=== PATIENT | male | born 1940 | race Caucasian/White ===

== ENCOUNTER → 2018-02-13 09:12 | Outpatient (CLI) | payer MEDICARE, BC, SELFPAY ==
[2018-02-13 09:57] LABS: Alanine Aminotransferase 29 IU/L (21-72); Aspartate Aminotransferase 25 IU/L (17-59); BUN Creatinine Ratio 19.3 (6-22); Blood Urea Nitrogen 29 mg/dL (9-20); Calcium 9.3 mg/dL (8.4-10.2); Carbon Dioxide 29 mmol/L (22-32); Chloride 98 mmol/L (98-107); Cholesterol 148 mg/dL (140-199); Estimated Glomerular Filt Rate 45.5 mL/min (>60); Glucose 139 mg/dL (80-110); HDL Cholesterol 67 mg/dL (40-60); HEMOLYSIS < 15 (0-50); LDL Cholesterol Calculated 69 mg/dL (<100); Potassium 4.7 mmol/L (3.4-5.1); Sodium 140 mmol/L (137-145); Triglycerides 62 mg/dL (35-150)
[2018-02-13 09:59] LABS: Hemoglobin A1C% w Est Avg Glu 6.6 % (4.0-6.0)
[2018-02-13 10:29] LABS: Prostate Specific Antigen Scrn 0.525 ng/mL (0.1-4.0)
[2018-02-13 11:14] LABS: TSH w/ Reflex to FT4 1.28 uIU/mL (0.47-4.68)
== END ==
PROVIDERS: Family Provider Internal Medicine; PCP Internal Medicine; Visit Provider Internal Medicine
DX: I10 Essential (primary) hypertension (principal); Z00.00 Encounter for general adult medical examination without abnormal findings; E11.9 Type 2 diabetes mellitus without complications; E78.00 Pure hypercholesterolemia, unspecified
CPT/HCPCS: 36415; 80048; 80061; 83036; 84443; 84450; 84460; G0103

== ENCOUNTER → 2019-04-30 18:11 | Outpatient (ROUT) | payer MEDICARE, BC, SELFPAY ==
[2019-04-30 18:52] LABS: Alanine Aminotransferase 26 IU/L (<50); Albumin 4.6 g/dL (3.5-5.0); Albumin Globulin Ratio 1.5 (1.0-2.8); Alkaline Phosphatase 91 U/L (38-126); Aspartate Aminotransferase 27 IU/L (17-59); BUN Creatinine Ratio 26.1 (6-22); Bilirubin Total 0.8 mg/dL (0.2-1.3); Blood Urea Nitrogen 47 mg/dL (9-20); Calcium 10.1 mg/dL (8.4-10.2); Carbon Dioxide 26 mmol/L (22-32); Chloride 102 mmol/L (98-107); Cholesterol 165 mg/dL (140-199); Estimated Glomerular Filt Rate 36.7 mL/min (>60); Globulin 3.1 g/dL (1.7-4.1); Glucose 147 mg/dL (80-110); HDL Cholesterol 63 mg/dL (40-60); HEMOLYSIS < 15 (0-50); LDL Cholesterol Calculated 88 mg/dL (<100); Potassium 5.5 mmol/L (3.4-5.1); Sodium 139 mmol/L (137-145); Total Protein 7.7 g/dL (6.3-8.2); Triglycerides 72 mg/dL (35-150)
[2019-04-30 18:53] LABS: Hemoglobin A1C% w Est Avg Glu 7.1 % (4.0-6.0)
[2019-04-30 19:22] LABS: TSH w/ Reflex to FT4 3.06 uIU/mL (0.47-4.68)
[2019-05-03 15:13] LABS: PSA Total 3.04 ng/mL (< 4.01)
== END ==
PROVIDERS: Family Provider Internal Medicine; PCP Internal Medicine; Visit Provider Internal Medicine
DX: Z12.5 Encounter for screening for malignant neoplasm of prostate (principal); N18.3 Chronic kidney disease, stage 3 (moderate); E78.00 Pure hypercholesterolemia, unspecified; E11.9 Type 2 diabetes mellitus without complications; E03.9 Hypothyroidism, unspecified
CPT/HCPCS: 80053; 80061; 83036; 84153; 84154; 84443

== ENCOUNTER → 2019-10-31 09:26 | Outpatient (CLI) | payer MEDICARE, BC, SELFPAY ==
[2019-10-31 10:55] LABS: Hemoglobin A1C% w Est Avg Glu 7.4 % (4.0-6.0)
[2019-10-31 11:07] LABS: Alanine Aminotransferase 21 IU/L (<50); Albumin 4.2 g/dL (3.5-5.0); Albumin Globulin Ratio 1.6 (1.0-2.8); Alkaline Phosphatase 84 U/L (38-126); Aspartate Aminotransferase 22 IU/L (17-59); BUN Creatinine Ratio 19.4 (6-22); Bilirubin Total 0.9 mg/dL (0.2-1.3); Blood Urea Nitrogen 35 mg/dL (9-20); Calcium 9.7 mg/dL (8.4-10.2); Carbon Dioxide 27 mmol/L (22-32); Chloride 103 mmol/L (98-107); Cholesterol 143 mg/dL (140-199); Estimated Glomerular Filt Rate 36.7 mL/min (>60); Globulin 2.7 g/dL (1.7-4.1); Glucose 143 mg/dL (80-110); HDL Cholesterol 52 mg/dL (40-60); HEMOLYSIS < 15 (0-50); LDL Cholesterol Calculated 72 mg/dL (<100); Sodium 137 mmol/L (137-145); Total Protein 6.9 g/dL (6.3-8.2); Triglycerides 96 mg/dL (35-150)
[2019-10-31 11:09] LABS: Creatinine Urine Random 92.7 mg/dL
[2019-10-31 11:10] LABS: Potassium 5.6 mmol/L (3.4-5.1)
[2019-10-31 11:13] LABS: Microalbumi Creatinin Ratio Ur 21.5 ug/mg CR (<30)
== END ==
PROVIDERS: Family Provider Internal Medicine; PCP Internal Medicine; Referring Provider Internal Medicine; Visit Provider Internal Medicine
DX: I10 Essential (primary) hypertension (principal); E78.00 Pure hypercholesterolemia, unspecified; E11.9 Type 2 diabetes mellitus without complications
CPT/HCPCS: 36415; 80053; 80061; 82043; 82570; 83036

== ENCOUNTER → 2020-02-24 19:17 | Outpatient (ROUT) | payer MEDICARE, BC, SELFPAY ==
[2020-02-24 20:15] LABS: Alanine Aminotransferase 17 IU/L (<50); Albumin 4.5 g/dL (3.5-5.0); Albumin Globulin Ratio 1.6 (1.0-2.8); Alkaline Phosphatase 85 U/L (38-126); Aspartate Aminotransferase 24 IU/L (17-59); BUN Creatinine Ratio 27.4 (6-22); Bilirubin Total 0.6 mg/dL (0.2-1.3); Blood Urea Nitrogen 51 mg/dL (9-20); Calcium 9.8 mg/dL (8.4-10.2); Carbon Dioxide 25 mmol/L (22-32); Chloride 105 mmol/L (98-107); Estimated Glomerular Filt Rate 35.3 mL/min (>60); Globulin 2.9 g/dL (1.7-4.1); Glucose 134 mg/dL (80-110); HEMOLYSIS < 15 (0-50); Sodium 136 mmol/L (137-145); Total Protein 7.4 g/dL (6.3-8.2)
[2020-02-24 20:16] LABS: Potassium 5.4 mmol/L (3.4-5.1)
[2020-02-24 20:52] LABS: TSH w/ Reflex to FT4 1.76 uIU/mL (0.47-4.68)
== END ==
PROVIDERS: Family Provider Internal Medicine; PCP Internal Medicine; Visit Provider Internal Medicine
DX: E03.9 Hypothyroidism, unspecified (principal); N18.30 Chronic kidney disease, stage 3 unspecified
CPT/HCPCS: 80053; 84443

== ENCOUNTER → 2020-04-12 12:31 | Outpatient (CLI) | payer MEDICARE, BC, SELFPAY ==
--- NOTE | 2020-04-12 | DI.US.S_ITS ---
PROCEDURE: US RENAL COMPLETE INDICATIONS: CHRONIC KIDNEY DISEASE STAGE 3B TECHNIQUE: Real-time scanning was performed of the kidneys and bladder, with image documentation. COMPARISON: None. FINDINGS: Kidneys: Kidneys are normal in size. Right kidney measures 9.6 cm long; left kidney measures 11.5 cm long. Right renal cortical thickness is 1.5 cm; left renal cortical thickness is 1.1 cm. Mildly increased renal echogenicity is seen.. No hydronephrosis or nephrolithiasis. No suspicious solid mass lesions. Bladder: Pre-void bladder volume is 207 mL. Post-void residual is 34 mL. Pre-void images demonstrate no intraluminal masses or stones. There is bladder wall thickening seen, measuring 6.5 mm on the prevoid images and 7.3 cm on the postvoid images. On pre-void images, neither of the ureteral jets are noted with color Doppler interrogation. (Of note, ureteral jets may not be detectable in up to 25% of cases due to insufficient differences in specific gravity between ureteral and bladder urine). Miscellaneous: No free pelvic fluid. The prostate measures 5.2 x 4.9 x 4.3 cm. IMPRESSION: No hydronephrosis is seen. No focal kidney abnormality is seen. The kidneys demonstrate increased echogenicity, which is consistent with the given clinical history of chronic kidney disease. Bladder wall thickening is seen. Please consider bladder outlet obstruction in this patient with a prominent prostate. Mild postvoid residual, 34 cc. Dictated by: Mckay Holden M.D. on 04/12/2020 at 14:25 Approved by: Mckay Holden M.D. on 04/12/2020 at 14:27
== END ==
PROVIDERS: Family Provider Internal Medicine; PCP Internal Medicine; Referring Provider Internal Medicine; Visit Provider Internal Medicine Nephrology
DX: N18.32 Chronic kidney disease, stage 3b (principal)
CPT/HCPCS: 76770

== ENCOUNTER → 2020-04-13 11:02 | Outpatient (CLI) | payer MEDICARE, BC, SELFPAY ==
[2020-04-13 12:16] LABS: BUN Creatinine Ratio 27.6 (6-22); Blood Urea Nitrogen 48 mg/dL (9-20); Calcium 9.3 mg/dL (8.4-10.2); Carbon Dioxide 29 mmol/L (22-32); Chloride 103 mmol/L (98-107); Glucose 202 mg/dL (80-110); HEMOLYSIS < 15 (0-50); Potassium 4.8 mmol/L (3.4-5.1); Sodium 135 mmol/L (137-145)
== END ==
PROVIDERS: Family Provider Internal Medicine; PCP Internal Medicine; Referring Provider Internal Medicine Nephrology; Visit Provider Internal Medicine Nephrology
DX: N17.9 Acute kidney failure, unspecified (principal)
CPT/HCPCS: 36415; 80048

== ENCOUNTER → 2020-12-30 08:50 | Outpatient (CLI) | payer MEDICARE, BC, SELFPAY ==
[2020-12-30 09:19] LABS: Add Manual Diff / Slide Review NO; Basophils Absolute Auto 100 /uL (0-100); Basophils Percent Auto 1.1 % (0-2); Eosinophils Absolute Auto 400 /uL (0-450); Eosinophils Percent Auto 5.6 % (2-4); Hemoglobin 12.1 g/dL (13.5-17.5); Lymphocytes Absolute Auto 1900 /uL (1100-4500); Lymphocytes Percent Auto 25.8 % (25-40); Mean Corpuscular HGB Conc 33.7 % (30-36); Mean Corpuscular Hemoglobin 31.6 PG (26-34); Mean Corpuscular Volume 93.6 fL (80-100); Monocytes Absolute Auto 700 /uL (0-900); Monocytes Percent Auto 9.4 % (3-14); Neutrophils Absolute Auto 4300 /uL (1500-7000); Neutrophils Percent Auto 58.1 % (50-75); Platelet Count 224 X10^3/uL (150-400); Red Blood Cell Count 3.84 X10^6/uL (4.5-5.9); Red Cell Distribution Width 13.2 % (11.6-14.8); White Blood Cell Count 7.4 X10^3/uL (4.5-11.0)
[2020-12-30 09:35] LABS: Albumin 4.2 g/dL (3.5-5.0); BUN Creatinine Ratio 22.5 (6-22); Blood Urea Nitrogen 41 mg/dL (9-20); Calcium 9.4 mg/dL (8.4-10.2); Carbon Dioxide 28 mmol/L (22-32); Chloride 103 mmol/L (98-107); Estimated Glomerular Filt Rate 36.1 mL/min (>60); Glucose 132 mg/dL (80-110); HEMOLYSIS < 15 (0-50); Phosphorous 3.5 mg/dL (2.3-3.7); Potassium 4.6 mmol/L (3.4-5.1); Sodium 140 mmol/L (137-145)
== END ==
PROVIDERS: Family Provider Internal Medicine; PCP Internal Medicine; Referring Provider Internal Medicine Nephrology; Visit Provider Internal Medicine Nephrology
DX: N18.32 Chronic kidney disease, stage 3b (principal)
CPT/HCPCS: 36415; 80069; 85025

== ENCOUNTER → 2021-06-24 09:56 | Outpatient (CLI) | payer MEDICARE, BC, SELFPAY ==
[2021-06-24 10:50] LABS: Add Manual Diff / Slide Review NO; Basophils Absolute Auto 100 /uL (0-100); Eosinophils Absolute Auto 500 /uL (0-450); Eosinophils Percent Auto 6.1 % (2-4); Hemoglobin 11.8 g/dL (13.5-17.5); Lymphocytes Absolute Auto 1600 /uL (1100-4500); Lymphocytes Percent Auto 21.2 % (25-40); Mean Corpuscular HGB Conc 33.7 % (30-36); Mean Corpuscular Hemoglobin 31.4 PG (26-34); Mean Corpuscular Volume 93.2 fL (80-100); Monocytes Absolute Auto 700 /uL (0-900); Monocytes Percent Auto 9.1 % (3-14); Neutrophils Absolute Auto 4800 /uL (1500-7000); Neutrophils Percent Auto 62.6 % (50-75); Platelet Count 208 X10^3/uL (150-400); Red Blood Cell Count 3.76 X10^6/uL (4.5-5.9); Red Cell Distribution Width 13.1 % (11.6-14.8); White Blood Cell Count 7.7 X10^3/uL (4.5-11.0)
[2021-06-24 11:20] LABS: BUN Creatinine Ratio 22.3 (6-22); Blood Urea Nitrogen 43 mg/dL (9-20); Calcium 8.9 mg/dL (8.4-10.2); Carbon Dioxide 26 mmol/L (22-32); Chloride 101 mmol/L (98-107); Estimated Glomerular Filt Rate 35 mL/min (>60); Glucose 160 mg/dL (80-110); HEMOLYSIS < 15 (0-50); Phosphorous 3.6 mg/dL (2.3-3.7); Sodium 138 mmol/L (137-145)
[2021-06-24 11:21] LABS: Creatinine Urine Random 176.4 mg/dL; Potassium 5.4 mmol/L (3.4-5.1); Protein (Total) Urine Random 15 mg/dL (0-12); Protein Creatinine Ratio Urine 0.08 GRAM/24H
[2021-06-24 11:37] LABS: Vitamin D 25 Hydroxy (D3) 24.4 ng/mL (30.0-100.0)
[2021-06-25 08:35] LABS: Parathyroid Hormone Int 67 pg/mL (15-65)
== END ==
PROVIDERS: Family Provider Internal Medicine; PCP Internal Medicine; Referring Provider Internal Medicine Nephrology; Visit Provider Internal Medicine Nephrology
DX: N18.32 Chronic kidney disease, stage 3b (principal)
CPT/HCPCS: 36415; 80069; 82306; 82570; 83970; 84156; 85025

== ENCOUNTER → 2021-12-28 08:47 | Outpatient (CLI) | payer MEDICARE, BC, SELFPAY ==
[2021-12-28 09:41] LABS: Add Manual Diff / Slide Review NO; Basophils Absolute Auto 100 /uL (0-100); Basophils Percent Auto 1.1 % (0-2); Eosinophils Absolute Auto 400 /uL (0-450); Eosinophils Percent Auto 5.8 % (2-4); Hematocrit 33.8 % (41-53); Hemoglobin 11.8 g/dL (13.5-17.5); Lymphocytes Absolute Auto 1600 /uL (1100-4500); Lymphocytes Percent Auto 21.9 % (25-40); Mean Corpuscular HGB Conc 34.9 % (30-36); Mean Corpuscular Volume 91.6 fL (80-100); Monocytes Absolute Auto 700 /uL (0-900); Monocytes Percent Auto 9.4 % (3-14); Neutrophils Absolute Auto 4500 /uL (1500-7000); Neutrophils Percent Auto 61.8 % (50-75); Platelet Count 208 X10^3/uL (150-400); Red Blood Cell Count 3.69 X10^6/uL (4.5-5.9); Red Cell Distribution Width 13.2 % (11.6-14.8); White Blood Cell Count 7.2 X10^3/uL (4.5-11.0)
[2021-12-28 09:54] LABS: Albumin 4.2 g/dL (3.5-5.0); Blood Urea Nitrogen 44 mg/dL (9-20); Calcium 9.4 mg/dL (8.4-10.2); Carbon Dioxide 29 mmol/L (22-32); Chloride 103 mmol/L (98-107); Estimated Glomerular Filt Rate 37 mL/min (>60); Glucose 138 mg/dL (80-110); HEMOLYSIS < 15 (0-50); Phosphorous 3.9 mg/dL (2.3-3.7); Potassium 4.8 mmol/L (3.4-5.1); Sodium 143 mmol/L (137-145)
[2021-12-28 10:24] LABS: Vitamin D 25 Hydroxy (D3) 55.4 ng/mL (30.0-100.0)
[2021-12-29 06:36] LABS: Parathyroid Hormone Int 28 pg/mL (15-65)
== END ==
PROVIDERS: Referring Provider Internal Medicine Nephrology; Visit Provider Internal Medicine Nephrology
DX: N18.32 Chronic kidney disease, stage 3b (principal); E55.9 Vitamin D deficiency, unspecified
CPT/HCPCS: 36415; 80069; 82306; 83970; 85025

== ENCOUNTER → 2022-06-29 09:10 | Outpatient (CLI) | payer MEDICARE, BC, SELFPAY ==
[2022-06-29 10:08] LABS: Add Manual Diff / Slide Review NO; Basophils Absolute Auto 100 /uL (0-100); Eosinophils Absolute Auto 300 /uL (0-450); Hematocrit 36.4 % (41-53); Hemoglobin 12.4 g/dL (13.5-17.5); Lymphocytes Absolute Auto 1200 /uL (1100-4500); Lymphocytes Percent Auto 21.5 % (25-40); Mean Corpuscular HGB Conc 33.9 % (30-36); Mean Corpuscular Hemoglobin 31.3 PG (26-34); Mean Corpuscular Volume 92.2 fL (80-100); Monocytes Absolute Auto 600 /uL (0-900); Monocytes Percent Auto 9.9 % (3-14); Neutrophils Absolute Auto 3600 /uL (1500-7000); Neutrophils Percent Auto 62.6 % (50-75); Platelet Count 169 X10^3/uL (150-400); Red Blood Cell Count 3.95 X10^6/uL (4.5-5.9); Red Cell Distribution Width 12.7 % (11.6-14.8); White Blood Cell Count 5.7 X10^3/uL (4.5-11.0)
[2022-06-29 10:40] LABS: Appearance Urine UA CLEAR; Bilirubin Urine UA NEGATIVE (NEGATIVE); Color Urine UA YELLOW; Glucose Urine UA TRACE g/dL (Negative); Ketones Urine UA NEGATIVE (NEGATIVE); Leukocyte Esterase Urine UA NEGATIVE (NEGATIVE); Nitrite Urine UA NEGATIVE (Negative); Occult Blood Urine UA TRACE-INTACT (Negative); Protein Urine UA 2+ (Negative); Specific Gravity Urine UA >=1.030 (1.000-1.035); Urobilinogen Urine UA 0.2 E.U./dL (0.2); pH Urine UA 5.5 (4.5-8.0)
[2022-06-29 10:47] LABS: Creatinine Urine Random 154.8 mg/dL
[2022-06-29 11:03] LABS: Bacteria Urine Moderate (10-30); RBC Urine 1-5/HPF (0-5/HPF); Squamous Epithelial Cell Urine 1-5 /HPF (0-5/HPF); WBC Urine 1-5/HPF (0-5/HPF)
[2022-06-29 11:04] LABS: Culture Indicated Urine Cult Not Indicated
[2022-06-29 11:16] LABS: Albumin 3.8 g/dL (3.5-5.0); BUN Creatinine Ratio 19.4 (6-22); Blood Urea Nitrogen 28 mg/dL (9-20); Calcium 8.8 mg/dL (8.4-10.2); Carbon Dioxide 32 mmol/L (22-32); Chloride 100 mmol/L (98-107); Estimated Glomerular Filt Rate 49 mL/min (>60); Glucose 191 mg/dL (80-110); HEMOLYSIS < 15 (0-50); Phosphorous 3.5 mg/dL (2.3-3.7); Potassium 4.6 mmol/L (3.4-5.1); Sodium 137 mmol/L (137-145)
[2022-06-29 11:26] LABS: Microalbumi Creatinin Ratio Ur 397.9 ug/mg CR (<30); Microalbumin Urine Random 61.6 mg/dL (0-1.6)
== END ==
PROVIDERS: Referring Provider Internal Medicine Nephrology; Visit Provider Internal Medicine Nephrology
DX: N18.32 Chronic kidney disease, stage 3b (principal)
CPT/HCPCS: 36415; 80069; 81001; 82043; 82570; 85025

== ENCOUNTER 2022-07-17 13:53 | Emergency (ER) | payer MEDICARE, BC, SELFPAY ==
[2022-07-17 14:05] VITALS: BP 207/84; PULSE 55; RESP 18; TEMP 36.6; O2SAT 98; BMI 27.1
--- NOTE | 2022-07-17 14:22 | ED_ITS ---
HPI - General Adult <Radha Mark PA-C - Last Filed: 07/17/22 16:47> General Chief complaint: Wound/Laceration Stated complaint: fall, hit head/ right hand Laceration Time Seen by Provider: 07/17/22 14:08 Source: patient Mode of arrival: Ambulatory History of Present Illness HPI narrative: 82-year-old male with past medical history hypothyroidism, BPH, hypercholesterolemia presents to the ED status post a mechanical fall sustained just prior to arrival. Patient states that he tripped in the parking lot, did not see a step. Patient denies feeling lightheaded or dizzy, did not have chest pain or shortness of breath leading to the fall. Last tetanus is unknown. Patient complains of 2 lacerations to his right palm which he sustained when bracing himself from the fall. Related Data Home Medications Medication Instructions Recorded Confirmed ATENOLOL (Tenormin) mg PO Q DAY ##0 06/17/06 Atorvastatin Calcium (Lipitor) 0 PO Q DAY ##0 06/17/06 [THYROID Medication] 0 mg PO Q DAY ##0 06/17/06 finasteride 5 mg tablet 5 mg PO QDAY ##0 11/22/16 tamsulosin 0.4 mg capsule (Flomax) 0.4 mg PO QDAY ##0 11/22/16 Previous Rx's Medication Instructions Recorded valacyclovir 1 gram tablet 1,000 mg PO TID #21 tabs 11/22/16 (Valtrex) Allergies Allergy/AdvReac Type Severity Reaction Status Date / Time No Known Drug Allergies Allergy Verified 07/17/22 14:24 Review of Systems <Radha Mark PA-C - Last Filed: 07/17/22 16:47> Review of Systems ROS Unobtainable: All systems reviewed & are unremarkable except as noted in HPI and below Constitutional Constitutional: Denies chills, Denies fatigue, Denies fever(s), Denies frequent falls, Denies lethargy and Denies weakness Eyes Eyes: Denies change in vision, Denies eye discharge, Denies irritation and Denies loss of vision ENT Ears, Nose, Mouth, and Throat: Denies change in voice, Denies dizziness, Denies neck pain, Denies sore throat and Denies throat swelling Cardiovascular Cardiovascular: Denies chest pain, Denies irregular heart rhythm, Denies lightheadedness, Denies palpitations, Denies dyspnea, Denies dyspnea on exertion and Denies orthopnea Respiratory Respiratory: Denies cough, Denies dyspnea, Denies dyspnea on exertion and Denies wheezing Gastrointestinal Gastrointestinal: Denies abdominal pain, Denies change in bowel habits, Denies diarrhea, Denies nausea and Denies vomiting Genitourinary Genitourinary: Denies hematuria, Denies flank pain, Denies urinary incontinence and Denies urinary urgency Musculoskeletal Musculoskeletal: Denies back pain, Denies muscle weakness, Denies neck pain, Denies numbness and Denies tingling Integumentary/Breasts Skin/Breast: Denies pruritus, Denies erythema, Denies rash and Reports wounds Comments: 2 Lacerations to palm of right hand. Neurologic Neurologic: Denies behavioral changes, Denies confusion, Denies dizziness, Denies frequent falls, Denies loss of vision, Denies numbness, Denies tingling and Denies weakness Psychiatric Psychiatric: Denies anxiety, Denies behavioral changes, Denies confusion, Denies depression, Denies homicidal ideation and Denies suicidal ideation Endocrine Endocrine: Denies fatigue, Denies flushing and Denies palpitations Hematologic/Lymphatic Hematologic/Lymphatic: Denies easy bruising Allergic/Immunologic Allergic/Immunologic: Denies urticaria, Denies throat swelling and Denies wheezing Patient History <Radha Mark PA-C - Last Filed: 07/17/22 16:47> Social History Smoking Status: Former smoker Smoking Status: Former smoker alcohol intake frequency: a few times a month Substance Use Type: does not use Exam <Radha Mark PA-C - Last Filed: 07/17/22 16:47> Narrative Exam Narrative: Const General:?cooperative, healthy appearing and comfortable [facility] Head: There appear to be 2 abrasions, 1 above the right brow, 1 lateral to the right eye. No skull depressions, hematoma. Mild tenderness to palpation. Ears:?hearing grossly normal bilaterally Nose:?external nose normal Face and sinus:?normal facial exam and sinuses nontender Mouth:?oral mucosae normal Throat:?posterior oropharynx normal Eyes General:?appearance normal, both eyes and all related structures Neck Neck:?normal visual inspection and no lymphadenopathy noted Resp Effort & Inspection:?normal respiratory effort Auscultation:?clear to auscultation bilaterally Cardio Rate:?regular rate Rhythm:?regular rhythm Integumentary There is a 1 cm linear laceration to the base of digit 5 of the right hand, there is a 1 cm linear laceration to the PIP of the 4th digit of the right hand. There is full range of motion. Strength and sensation is intact. No deeper structures visualized on exam. Patient appears neurovascularly intact. Neuro General:?patient alert, patient awake and patient oriented x3 Initial Vital Signs Initial Vital Signs: Vital Signs Temperature 98 F 07/17/22 14:05 Pulse Rate 55 L 07/17/22 14:05 Respiratory Rate 18 07/17/22 14:05 Blood Pressure 207/84 H 07/17/22 14:05 Pulse Oximetry 98 07/17/22 14:05 Oxygen Delivery Method Room Air 07/17/22 14:05 <Jorje Dobbs DO - Last Filed: 07/17/22 17:43> Initial Vital Signs Initial Vital Signs: Vital Signs Temperature 98 F 07/17/22 14:05 Pulse Rate 55 L 07/17/22 14:05 Respiratory Rate 18 07/17/22 14:05 Blood Pressure 207/84 H 07/17/22 14:05 Pulse Oximetry 98 07/17/22 14:05 Oxygen Delivery Method Room Air 07/17/22 14:05 Procedures <JASMINE Etienne Last Filed: 07/17/22 16:47> Laceration Repair Laceration 1: Site: hand (Base of 5th digit) Side (If applicable): right Size (cm): 1 Local Anesthetic: lidocaine 1% Amount of anesthesia used (mL): 3 Pre-repair: wound explored, irrigated extensively and deep structures intact Skin layer closed with: nylon Skin layer suture size: 4-0 Number of sutures: 3 Technique: simple, interrupted Laceration 2: Site: hand Side (If applicable): right (4th digit) Size (cm): 1 Local Anesthetic: lidocaine 1% Amount of anesthesia used (mL): 2 Pre-repair: wound explored, irrigated extensively and deep structures intact Skin layer closed with: nylon Skin layer suture size: 4-0 Number of sutures: 2 Course <JASMINE Etienne Last Filed: 07/17/22 16:47> Orders Ordered: ED Orders 07/17/22 14:33 CT cervical spine wo con Stat CT head/brain wo con Stat XR hand RT min 3V Stat Discontinued Medications Diphtheria/Tetanus/Acell Pertussis (Tet,Diph,Pertuss(Acell),Vac/Pf 0.5 Ml Syringe) 0.5 ml IM .ONCE ONE Stop: 07/17/22 14:06 Last Admin: 07/17/22 15:45 Dose: 0.5 ml Documented By: RB Lidocaine HCl (Lidocaine 1% (Pf) 5 Ml) 5 ml INJ NOW ONE Stop: 07/17/22 15:00 Last Admin: 07/17/22 15:43 Dose: 5 ml Documented By: RB Vital Signs Vital signs: Vital Signs - 8 hr 07/17/22 14:05 07/17/22 16:58 Temperature 98 F Pulse Rate 55 L 58 L Respiratory Rate 18 17 Blood Pressure 207/84 H 188/66 H Pulse Oximetry 98 99 Oxygen Delivery Method Room Air Room Air <Jorje Dobbs DO - Last Filed: 07/17/22 17:43> Orders Ordered: ED Orders 07/17/22 14:33 CT cervical spine wo con Stat CT head/brain wo con Stat XR hand RT min 3V Stat Discontinued Medications Diphtheria/Tetanus/Acell Pertussis (Tet,Diph,Pertuss(Acell),Vac/Pf 0.5 Ml Syringe) 0.5 ml IM .ONCE ONE Stop: 07/17/22 14:06 Last Admin: 07/17/22 15:45 Dose: 0.5 ml Documented By: RB Lidocaine HCl (Lidocaine 1% (Pf) 5 Ml) 5 ml INJ NOW ONE Stop: 07/17/22 15:00 Last Admin: 07/17/22 15:43 Dose: 5 ml Documented By: RB Vital Signs Vital signs: Vital Signs - 8 hr 07/17/22 14:05 07/17/22 16:58 Temperature 98 F Pulse Rate 55 L 58 L Respiratory Rate 18 17 Blood Pressure 207/84 H 188/66 H Pulse Oximetry 98 99 Oxygen Delivery Method Room Air Room Air Medical Decision Making <Radha Mark PA-C - Last Filed: 07/17/22 16:47> MDM Narrative Medical decision making narrative: 82-year-old male with past medical history hypothyroidism, BPH, hypercholesterolemia presents to the ED status post a mechanical fall sustained just prior to arrival. Concern for intracranial bleed versus fracture/dislocation. Will obtain CT head, CT C-spine, hand x-ray. Will repair lacerations with sutures. Will reassess. X-ray of the hand shows no fracture/dislocations. CT head and CT C-spine without acute findings. Lacerations were sutured. The laceration at the base of the 5th digit was repaired with 3 sutures, the laceration on the 4th digit was sutured with 2 sutures. Sutures will need to be removed in 7-10 days. Tetanus was updated today. Signs of infection and ED return precautions discussed with patient. Patient verbalized understanding. Medical records reviewed: Yes Discharge Plan Departure Patient Disposition: Home Clinical Impression: Laceration Instructions: DI for Laceration Repair -- Finger Activity Restrictions/Additional Instructions: You were evaluated in the ED today for a fall. Your CT scan of the head and neck were normal. The x-ray of your hand did not show any fractures or dislocations. You sustained 2 lacerations. The laceration at the base of the pinky finger was repaired with 3 sutures and the laceration on your ring finger was repaired with 2 sutures. Return to the ED if you note any signs of infection including worsening redness, pain, swelling, warmth, discharge. The sutures will need to be removed in 7-10 days. You may return to the ED or go to a walk-in clinic or urgent care, your PCP office for suture removal. Your tetanus was also updated today. Prescriptions: No Action ATENOLOL (Tenormin) PO Q DAY Qty: 0 Atorvastatin Calcium (Lipitor) 0 PO Q DAY Qty: 0 [THYROID Medication] 0 mg PO Q DAY Qty: 0 tamsulosin [Flomax] 0.4 MG capsule,extended release 24hr 0.4 mg PO QDAY Qty: 0 finasteride 5 MG tablet 5 mg PO QDAY Qty: 0 valacyclovir [Valtrex] 1,000 MG tablet 1,000 mg PO TID Qty: 21 0RF Referrals: Ashley Mayo MD [Primary Care Provider] - Stand Alone Forms: Patient Portal/API <Jorje Dobbs DO - Last Filed: 07/17/22 17:43> Cosign ED Attending Cosignature Attestation: Dr Dobbs Co-Sign Statement: I was available for consultation during this patient's emergency department visit. This chart is signed by myself for administrative purposes only. I did not have direct contact with this patient during this visit. They were seen independently by the APC.
--- NOTE | 2022-07-17 14:33 | DI.RAD.S_ITS ---
PROCEDURE: XR HAND RT MIN 3V INDICATIONS: Fall TECHNIQUE: 3 views of the hand(s) acquired. COMPARISON: None. FINDINGS: Bones: No fractures or dislocations. Remote ulnar styloid fracture. Carpal bones are normally aligned. Mild ulnar deviation of the 4th and 5th digits. Interphalangeal joint space narrowing and osteophytosis. No suspicious bony lesions. Soft tissues: No suspicious soft tissue calcifications. IMPRESSION: No acute osseous abnormality identified. If clinically indicated consider follow-up radiographs in 10-14 days. Dictated by: Alfred Smallwood M.D. on 07/17/2022 at 15:54 Approved by: Alfred Smallwood M.D. on 07/17/2022 at 15:57
--- NOTE | 2022-07-17 14:33 | DI.CT.S_ITS ---
PROCEDURE: CT CERVICAL SPINE WO CON INDICATIONS: Fall TECHNIQUE: Noncontrast 3 mm thick sections acquired from the skull base to the T4 level. Sagittal and coronal reformats were then constructed. For radiation dose reduction, the following was used: automated exposure control, adjustment of mA and/or kV according to patient size. COMPARISON: [facility], CR, CERVICAL SPINE 4 VIEWS, 06/17/2006, 17:53. [facility], CT, CT HEAD/BRAIN WO CON, 07/17/2022, 14:40. FINDINGS: Image quality: Excellent. Bones: No fractures or dislocations. Visualized superior ribs are intact. Degenerative changes can be seen throughout, including involving the C1-C2 interface anteriorly. There is at least moderate disc space narrowing seen at C5-C6 and C6-C7. Areas of ossification can be seen involving the posterior longitudinal ligament. Soft tissues: Prevertebral soft tissues are normal in thickness. No paravertebral hematomas. No apical pneumothoraces. IMPRESSION: Negative for fracture. Cervical spine degenerative changes are seen, which are worst inferiorly. Dictated by: Mckay Holden M.D. on 07/17/2022 at 13:58 Approved by: Mckay Holden M.D. on 07/17/2022 at 13:59
--- NOTE | 2022-07-17 14:33 | DI.CT.S_ITS ---
PROCEDURE: CT HEAD/BRAIN WO CON INDICATIONS: Fall TECHNIQUE: Noncontrast 4.5 mm thick angled axial sections acquired from the foramen magnum to the vertex, with coronal and sagittal reformats. For radiation dose reduction, the following was used: automated exposure control, adjustment of mA and/or kV according to patient size. COMPARISON: [facility], CT, CT CERVICAL SPINE WO CON, 07/17/2022, 14:40. FINDINGS: Image quality: Excellent. CSF spaces: Basal cisterns are patent. No extra-axial fluid collections. The ventricles are symmetric in size and shape. Brain: No intracranial bleeds or masses. There is cerebral volume loss for age, with resultant ventricular and sulcal prominence. There are periventricular and deep white matter chronic small vessel ischemic changes. There is intracranial internal carotid artery atherosclerosis. Skull and face: Calvarium and visualized facial bones appear intact, without suspicious lesions. Incidental note is made of an osteoma superiorly and on the left, as on series 3, image 27 and on series 4, image 27. Sinuses: There is near complete opacification of the left maxillary sinus. There is a mucous retention cyst within the medial right maxillary sinus. Milder mucosal thickening is seen elsewhere within the paranasal sinuses. No significant abnormal mastoid air cell fluid can be seen. IMPRESSION: No acute intracranial hemorrhage is seen. No acute intracranial process is seen. Dictated by: Mckay Holden M.D. on 07/17/2022 at 13:56 Approved by: Mckay Holden M.D. on 07/17/2022 at 13:58
[2022-07-17] MEDS: LIDOCAINE 1% (PF) 5 ML INJ (15:43)
[2022-07-17] MEDS: TET,DIPH,PERTUSS(ACELL),VAC/PF 0.5 ML SYRINGE IM (15:45)
[2022-07-17 16:58] VITALS: BP 188/66; PULSE 58; RESP 17; O2SAT 99
== END 2022-07-17 17:00 | disposition home or self-care (01) ==
PROVIDERS: Emergency Provider Student in an Organized Health Care Education/Training Program; PCP Internal Medicine
DX: S61.411A Laceration without foreign body of right hand, initial encounter (principal); S09.90XA Unspecified injury of head, initial encounter; W01.0XXA Fall on same level from slipping, tripping and stumbling without subsequent striking against object, initial encounter; Z23 Encounter for immunization
CPT/HCPCS: 12001; 70450; 72125; 73130; 90471; 99284; 90715

== ENCOUNTER → 2023-01-09 09:01 | Outpatient (CLI) | payer MEDICARE, BC, SELFPAY ==
[2023-01-09 10:59] LABS: Add Manual Diff / Slide Review NO; Basophils Absolute Auto 100 /uL (0-100); Basophils Percent Auto 1.1 % (0-2); Eosinophils Absolute Auto 400 /uL (0-450); Eosinophils Percent Auto 5.3 % (2-4); Hematocrit 31.5 % (41-53); Lymphocytes Absolute Auto 1500 /uL (1100-4500); Lymphocytes Percent Auto 21.5 % (25-40); Mean Corpuscular HGB Conc 34.8 % (30-36); Mean Corpuscular Hemoglobin 32.4 PG (26-34); Mean Corpuscular Volume 93.1 fL (80-100); Monocytes Absolute Auto 600 /uL (0-900); Monocytes Percent Auto 8.6 % (3-14); Neutrophils Absolute Auto 4400 /uL (1500-7000); Neutrophils Percent Auto 63.5 % (50-75); Platelet Count 191 X10^3/uL (150-400); Red Blood Cell Count 3.38 X10^6/uL (4.5-5.9); Red Cell Distribution Width 12.7 % (11.6-14.8); White Blood Cell Count 6.9 X10^3/uL (4.5-11.0)
[2023-01-09 11:23] LABS: Albumin 3.9 g/dL (3.5-5.0); BUN Creatinine Ratio 24.9 (6-22); Blood Urea Nitrogen 42 mg/dL (9-20); Calcium 9.8 mg/dL (8.4-10.2); Carbon Dioxide 26 mmol/L (22-32); Chloride 104 mmol/L (98-107); Estimated Glomerular Filt Rate 40 mL/min (>60); Glucose 106 mg/dL (80-110); HEMOLYSIS < 15 (0-50); Sodium 138 mmol/L (137-145)
[2023-01-09 11:32] LABS: Vitamin D 25 Hydroxy (D3) 51.1 ng/mL (30.0-100.0)
[2023-01-09 15:20] LABS: Creatinine Urine Random 118.5 mg/dL
[2023-01-09 15:26] LABS: Microalbumi Creatinin Ratio Ur 25.3 ug/mg CR (<30)
[2023-01-11 09:15] LABS: Parathyroid Hormone Int 30 pg/mL (15-65)
== END ==
PROVIDERS: PCP Internal Medicine; Referring Provider Internal Medicine Nephrology; Visit Provider Internal Medicine Nephrology
DX: N18.32 Chronic kidney disease, stage 3b (principal)
CPT/HCPCS: 36415; 80069; 82043; 82306; 82570; 83970; 85025

== ENCOUNTER → 2023-08-01 09:12 | Outpatient (CLI) | payer MEDICARE, BC, SELFPAY ==
[2023-08-01 10:20] LABS: Hematocrit 30.5 % (41-53); Hemoglobin 10.4 g/dL (13.5-17.5); Mean Corpuscular Hemoglobin 31.8 PG (26-34); Mean Corpuscular Volume 93.5 fL (80-100); Platelet Count 178 X10^3/uL (150-400); Red Blood Cell Count 3.27 X10^6/uL (4.5-5.9); Red Cell Distribution Width 13.2 % (11.6-14.8); White Blood Cell Count 6.7 X10^3/uL (4.5-11.0)
[2023-08-01 10:50] LABS: Appearance Urine UA CLEAR; Bilirubin Urine UA NEGATIVE (NEGATIVE); Color Urine UA YELLOW; Glucose Urine UA NEGATIVE (Negative); Ketones Urine UA NEGATIVE (NEGATIVE); Leukocyte Esterase Urine UA NEGATIVE (NEGATIVE); Nitrite Urine UA NEGATIVE (Negative); Occult Blood Urine UA NEGATIVE (Negative); Protein Urine UA NEGATIVE (Negative); Specific Gravity Urine UA 1.015 (1.000-1.035); Urobilinogen Urine UA 0.2 E.U./dL (0.2); pH Urine UA 5.5 (4.5-8.0)
[2023-08-01 10:55] LABS: HEMOLYSIS < 15 (0-50); Iron 83 ug/dL (49-181)
[2023-08-01 10:57] LABS: Creatinine Urine Random 77.93 mg/dL; Protein (Total) Urine Random 10 mg/dL (0-12); Protein Creatinine Ratio Urine 0.12 GRAM/24H
[2023-08-01 11:00] LABS: Bacteria Urine Occasional (0-1); RBC Urine None Seen (0-5/HPF); Urine Volume 10mL (spun); WBC Urine 0-1/HPF (0-5/HPF)
[2023-08-01 11:01] LABS: Culture Indicated Urine Cult Not Indicated; Squamous Epithelial Cell Urine 0-1 /HPF (0-5/HPF)
[2023-08-01 11:03] LABS: Microalbumin Urine Random 2.1 mg/dL (0-1.6)
[2023-08-01 11:06] LABS: Albumin 3.9 g/dL (3.5-5.0); BUN Creatinine Ratio 26.9 (6-22); Blood Urea Nitrogen 49 mg/dL (9-20); Calcium 8.9 mg/dL (8.4-10.2); Carbon Dioxide 26 mmol/L (22-32); Chloride 108 mmol/L (98-107); Estimated Glomerular Filt Rate 37 mL/min (>60); Glucose 107 mg/dL (80-110); HEMOLYSIS < 15 (0-50); Phosphorous 3.7 mg/dL (2.3-3.7); Potassium 5.2 mmol/L (3.4-5.1); Sodium 138 mmol/L (137-145)
[2023-08-01 11:07] LABS: Percent Iron Saturation 39 % (20-50); Total Iron Binding Capacity 211 ug/dL (261-462); Transferrin 155 mg/dL (206-381)
[2023-08-01 11:17] LABS: Vitamin D 25 Hydroxy (D3) 61.6 ng/mL (30.0-100.0)
[2023-08-01 11:37] LABS: Ferritin 105 ng/mL (18-464)
[2023-08-03 05:43] LABS: Parathyroid Hormone Int 27 pg/mL (15-65)
== END ==
PROVIDERS: PCP Internal Medicine; Referring Provider Internal Medicine Nephrology; Visit Provider Internal Medicine Nephrology
DX: I12.9 Hypertensive chronic kidney disease with stage 1 through stage 4 chronic kidney disease, or unspecified chronic kidney disease (principal); N18.32 Chronic kidney disease, stage 3b
CPT/HCPCS: 36415; 80069; 81001; 82043; 82306; 82570; 82728; 83540; 83550; 83970; 84156; 85027

== ENCOUNTER → 2024-01-10 09:43 | Outpatient (CLI) | payer MEDICARE, BC, SELFPAY ==
[2024-01-10 10:40] LABS: Hematocrit 34.9 % (41-53); Hemoglobin 11.8 g/dL (13.5-17.5); Mean Corpuscular HGB Conc 33.8 % (30-36); Mean Corpuscular Hemoglobin 31.9 PG (26-34); Mean Corpuscular Volume 94.5 fL (80-100); Platelet Count 207 X10^3/uL (150-400); Red Blood Cell Count 3.69 X10^6/uL (4.5-5.9); Red Cell Distribution Width 13.1 % (11.6-14.8); White Blood Cell Count 7.2 X10^3/uL (4.5-11.0)
[2024-01-10 11:12] LABS: BUN Creatinine Ratio 24.9 (6-22); Blood Urea Nitrogen 50 mg/dL (9-20); Calcium 9.4 mg/dL (8.4-10.2); Carbon Dioxide 25 mmol/L (22-32); Chloride 104 mmol/L (98-107); Estimated Glomerular Filt Rate 33 mL/min (>60); Glucose 111 mg/dL (80-110); HEMOLYSIS < 15 (0-50); Phosphorous 3.8 mg/dL (2.3-3.7); Sodium 137 mmol/L (137-145)
[2024-01-10 11:20] LABS: HEMOLYSIS < 15 (0-50); Iron 120 ug/dL (49-181)
[2024-01-10 11:31] LABS: Percent Iron Saturation 52 % (20-50); Total Iron Binding Capacity 230 ug/dL (261-462); Transferrin 179 mg/dL (206-381)
[2024-01-10 11:39] LABS: Protein (Total) Urine Random 14 mg/dL (0-12); Protein Creatinine Ratio Urine 0.13 GRAM/24H; Vitamin D 25 Hydroxy (D3) 50.3 ng/mL (30.0-100.0)
[2024-01-10 11:41] LABS: Ferritin 109 ng/mL (18-464)
[2024-01-10 11:44] LABS: Microalbumin Urine Random 4.2 mg/dL (0-1.6)
[2024-01-11 07:11] LABS: Parathyroid Hormone Int 42 pg/mL (15-65)
== END ==
PROVIDERS: PCP Internal Medicine; Referring Provider Internal Medicine Nephrology; Visit Provider Internal Medicine Nephrology
DX: I12.9 Hypertensive chronic kidney disease with stage 1 through stage 4 chronic kidney disease, or unspecified chronic kidney disease (principal); N18.30 Chronic kidney disease, stage 3 unspecified; D63.1 Anemia in chronic kidney disease; N18.32 Chronic kidney disease, stage 3b
CPT/HCPCS: 80069; 82043; 82306; 82570; 82728; 83540; 83550; 83970; 84156; 85027

== ENCOUNTER 2024-03-26 11:09 | Emergency (ER) | payer MEDICARE, BC, SELFPAY ==
[2024-03-26] VITALS (12 sets, daily range): BP systolic 153–185; BP diastolic 67–95; PULSE 44–53; RESP 12–25; TEMP 36.3; O2SAT 96–100; BMI 26.5
--- NOTE | 2024-03-26 11:28 | EKG_ITS ---
[address] [address] Test Date: 2024-03-26 Pat Name: Jamarcus Spencer Department: Room: Gender: Male [employer]: MIGUEL : 1940 Requested By: Order Number: [id number] Reading MD: Measurements Intervals [place] Rate: 48 P: 52 SD: 176 QRS: -57 QRSD: 128 T: 61 QT: 464 QTc: 414 Interpretive Statements Sinus bradycardia Right bundle branch block Left anterior fascicular block Bifascicular block Minimal voltage criteria for LVH, may be normal variant ( R in aVL )
[2024-03-26 11:51] LABS: Add Manual Diff / Slide Review NO; Basophils Absolute Auto 100 /uL (0-100); Basophils Percent Auto 1.4 % (0-2); Eosinophils Absolute Auto 300 /uL (0-450); Eosinophils Percent Auto 3.5 % (2-4); Hemoglobin 11.3 g/dL (13.5-17.5); Lymphocytes Absolute Auto 1700 /uL (1100-4500); Lymphocytes Percent Auto 21.6 % (25-40); Mean Corpuscular HGB Conc 33.3 % (30-36); Mean Corpuscular Hemoglobin 31.6 PG (26-34); Mean Corpuscular Volume 95.1 fL (80-100); Monocytes Absolute Auto 600 /uL (0-900); Monocytes Percent Auto 7.4 % (3-14); Neutrophils Absolute Auto 5100 /uL (1500-7000); Neutrophils Percent Auto 66.1 % (50-75); Platelet Count 187 X10^3/uL (150-400); Red Blood Cell Count 3.57 X10^6/uL (4.5-5.9); Red Cell Distribution Width 13.7 % (11.6-14.8); White Blood Cell Count 7.8 X10^3/uL (4.5-11.0)
[2024-03-26 11:57] LABS: Prothrombin Time 11.1 SECONDS (9.4-12.5)
[2024-03-26 12:00] LABS: PTT Partial Thromboplastin Tim 32 SECONDS (25.1-36.5)
[2024-03-26] MEDS: PANTOPRAZOLE 40 MG VIAL 80 MG IV (12:00)
[2024-03-26 12:01] LABS: Alanine Aminotransferase 18 IU/L (<50); Albumin 4.2 g/dL (3.5-5.0); Albumin Globulin Ratio 1.5 (1.0-2.8); Alkaline Phosphatase 70 U/L (38-126); Aspartate Aminotransferase 24 IU/L (17-59); BUN Creatinine Ratio 28.4 (6-22); Bilirubin Total 0.5 mg/dL (0.2-1.3); Blood Urea Nitrogen 56 mg/dL (9-20); Calcium 9.3 mg/dL (8.4-10.2); Carbon Dioxide 21 mmol/L (22-32); Chloride 109 mmol/L (98-107); Estimated Glomerular Filt Rate 33 mL/min (>60); Globulin 2.8 g/dL (1.7-4.1); Glucose 170 mg/dL (80-110); HEMOLYSIS < 15 (0-50); Sodium 138 mmol/L (137-145)
--- NOTE | 2024-03-26 12:14 | ED.GIBLEED ---
HPI - GI Bleed General Chief complaint: GI Bleed Stated complaint: Per patient , Rectal Bleeding Time Seen by Provider: 03/26/24 12:13 Source: patient Mode of arrival: Ambulatory History of Present Illness HPI Narrative: Patient here for painless bright red blood rectal bleeding since last night. It only occurs when he has flatus. He is on iron supplement. No dizziness. No nausea or vomiting. No hematuria. Patient is not on any blood thinners. Last colonoscopy 10 years ago. Denies any history of colon cancer or diverticulosis. Denies any abdominal pain Related Data Home Medications Medication Instructions Recorded Confirmed ATENOLOL (Tenormin) mg PO Q DAY ##0 06/17/06 Atorvastatin Calcium (Lipitor) 0 PO Q DAY ##0 06/17/06 [THYROID Medication] 0 mg PO Q DAY ##0 06/17/06 finasteride 5 mg tablet 5 mg PO QDAY ##0 11/22/16 tamsulosin 0.4 mg capsule (Flomax) 0.4 mg PO QDAY ##0 11/22/16 Previous Rx's Medication Instructions Recorded valacyclovir 1 gram tablet 1,000 mg PO TID #21 tabs 11/22/16 (Valtrex) Allergies Allergy/AdvReac Type Severity Reaction Status Date / Time No Known Drug Allergies Allergy Verified 07/17/22 14:24 Review of Systems Review of Systems Narrative: GENERAL: Negative chills, fatigue, malaise, fever, sweats. HEENT: Negative sinus pain, ear pain, sore throat RESPIRATORY: Negative dyspnea, cough CARDIOVASCULAR: Negative chest pain, palpitations GASTROINTESTINAL: Negative nausea, vomiting, abdominal pain, positive rectal bleeding : Negative dysuria, frequency, hematuria MUSCULOSKELETAL: Negative muscle or bony pain SKIN: Negative rash, skin lesions NEUROLOGIC: Negative weakness, numbness ROS Unobtainable: All systems reviewed & are unremarkable except as noted in HPI and below Patient History Social History Smoking Status: Former smoker Smoking Status: Former smoker alcohol intake frequency: a few times a month Exam Narrative Exam Narrative: GENERAL: in no distress, not toxic not dyspneic HEAD: Normocephalic. EYES: Pupils equal round pink conjunctiva ENT: Mucous membranes moist. NECK: Trachea midline. CARDIOVASCULAR: Regular rate and rhythm, brisk cap refills RESPIRATORY: Clear to auscultation. Breath sounds equal bilaterally. No wheezes, rales, or rhonchi. GASTROINTESTINAL: Abdomen soft, non-tender, rectal exam old dried blood around the rectum. Nontender non thrombosed hemorrhoids externally. EXTREMITIES: No gross deformities. BACK: No flank tenderness. NEURO: AOx4. Clear speech SKIN: Warm and dry and pink. PSYCH: Not anxious, is cooperative Initial Vital Signs Initial Vital Signs: Vital Signs Temperature 97.3 F L 03/26/24 11:13 Pulse Rate 50 L 03/26/24 11:13 Respiratory Rate 16 03/26/24 11:13 Blood Pressure 185/76 H 03/26/24 11:13 Pulse Oximetry 97 03/26/24 11:13 Oxygen Delivery Method Room Air 03/26/24 11:13 Course Orders Ordered: ED Orders 03/26/24 11:24 EKG-12 Lead Stat 03/26/24 11:37 Complete Blood Count AUTO DIFF Stat Comprehensive Metabolic Panel Stat PTT Partial Thromboplastin Mahendra Stat Prothrombin Time INR Stat 03/26/24 11:55 Type and Screen Stat 03/26/24 12:19 CT abdomen pelvis w con Stat Discontinued Medications Sodium Chloride (Normal Saline 0.9%) 500 mls @ 1,000 mls/hr IV BOLUS ONE Stop: 03/26/24 12:48 Last Infusion: 03/26/24 13:17 Dose: Infused Documented By: Admin: 03/26/24 12:42 Dose: 1,000 mls/hr Documented By: EUN Ondansetron HCl (Ondansetron 4 Mg/2 Ml Inj) 4 mg IV NOW PRN PRN Reason: Nausea And Vomiting Ondansetron HCl (Ondansetron 4 Mg Odt) 4 mg SL NOW PRN PRN Reason: Nausea And Vomiting Pantoprazole Sodium (Pantoprazole 40 Mg Vial) 80 mg IV NOW ONE Stop: 03/26/24 11:24 Last Admin: 03/26/24 12:00 Dose: 80 mg Documented By: EUN Vital Signs Vital signs: Vital Signs - 8 hr 03/26/24 11:13 03/26/24 11:40 03/26/24 11:42 Temperature 97.3 F L Pulse Rate 50 L 48 L Respiratory Rate 16 22 Blood Pressure 185/76 H 177/74 H Pulse Oximetry 97 100 Oxygen Delivery Method Room Air 03/26/24 11:42 03/26/24 12:00 03/26/24 12:00 Temperature Pulse Rate 49 L 52 L Respiratory Rate 20 19 Blood Pressure 157/95 H Pulse Oximetry 99 99 Oxygen Delivery Method 03/26/24 12:37 03/26/24 12:39 03/26/24 12:39 Temperature Pulse Rate 53 L Respiratory Rate 15 Blood Pressure 166/67 H Pulse Oximetry 100 98 Oxygen Delivery Method 03/26/24 13:00 03/26/24 13:01 03/26/24 13:01 Temperature Pulse Rate 49 L 50 L Respiratory Rate 12 13 Blood Pressure 175/74 H Pulse Oximetry 97 97 Oxygen Delivery Method 03/26/24 13:30 03/26/24 13:31 03/26/24 13:31 Temperature Pulse Rate 46 L 47 L Respiratory Rate 12 15 Blood Pressure 162/72 H Pulse Oximetry 96 96 Oxygen Delivery Method 03/26/24 14:00 03/26/24 14:01 03/26/24 14:01 Temperature Pulse Rate 44 L 46 L Respiratory Rate 19 25 H Blood Pressure 153/70 H Pulse Oximetry 97 97 Oxygen Delivery Method MDM - GI Bleed Lab Data 03/26/24 11:37 03/26/24 11:37 Labs: Lab Results 03/26/24 03/26/24 Range/Units 11:37 11:55 WBC 7.8 (4.5-11.0) X10^3/uL RBC 3.57 L (4.5-5.9) X10^6/uL Hgb 11.3 L (13.5-17.5) g/dL Hct 34.0 L (41-53) % MCV 95.1 (80-100) fL MCH 31.6 (26-34) PG MCHC 33.3 (30-36) % RDW 13.7 (11.6-14.8) % Plt Count 187 (150-400) X10^3/uL Neut % (Auto) 66.1 (50-75) % Lymph % (Auto) 21.6 L (25-40) % [place] % (Auto) 7.4 (3-14) % Eos % (Auto) 3.5 (2-4) % Baso % (Auto) 1.4 (0-2) % Neut # (Auto) 5100 (1126-6351) /uL Lymph # (Auto) 1700 (4526-6205) /uL [place] # (Auto) 600 (0-900) /uL Eos # (Auto) 300 (0-450) /uL Baso # (Auto) 100 (0-100) /uL PT 11.1 (9.4-12.5) SECONDS INR 1.0 (0.9-1.3) APTT 32 (25.1-36.5) SECONDS Sodium 138 (137-145) mmol/L Potassium 5.0 (3.4-5.1) mmol/L Chloride 109 H (98-107) mmol/L Carbon Dioxide 21 L (22-32) mmol/L BUN 56 H (9-20) mg/dL Creatinine 1.97 H (0.66-1.25) mg/dL Estimated GFR 33 L (>60) mL/min BUN/Creatinine Ratio 28.4 H (6-22) Glucose 170 H (80-110) mg/dL Calcium 9.3 (8.4-10.2) mg/dL Total Bilirubin 0.5 (0.2-1.3) mg/dL AST 24 (17-59) IU/L ALT 18 (<50) IU/L Alkaline Phosphatase 70 (38-126) U/L Total Protein 7.0 (6.3-8.2) g/dL Albumin 4.2 (3.5-5.0) g/dL Globulin 2.8 (1.7-4.1) g/dL Albumin/Globulin Ratio 1.5 (1.0-2.8) Blood Type O Negative Antibody Screen Negative Imaging Data CT scan - abdomen/pelvis: Radiologist's Impression: [place] [address] CT Scan Report Signed Patient: Jamarcus Spencer MR#: [id number] : 1940 Acct:[id number] Age/Sex: 84 / M Date of Service: 03/26/24 Loc: ED Accession Number: [id number] Procedure: CT abdomen pelvis w con Ordering Provider: Pete Rayo MD PROCEDURE: CT ABDOMEN PELVIS W CON INDICATIONS: rectal bleeding TECHNIQUE: After the administration of intravenous contrast, axial sections acquired from the lung bases to the pubic symphysis. Coronal and sagittal reformats were performed. For radiation dose reduction, the following was used: automated exposure control, adjustment of mA and/or kV according to patient size. COMPARISON: None. FINDINGS: Image quality: Diagnostic. Lower Chest: Dependent atelectasis in posterior aspect of bilateral lung bases are seen. Heart size is normal, no pericardial effusion. Small hiatal hernia. ABDOMEN: Liver: No solid mass. Gallbladder: No radiopaque gallstones or wall thickening. Biliary ducts: No biliary dilation. Pancreas: No ductal dilation. Spleen: Size is within normal limits. Adrenal Glands: No adrenal nodules. Kidneys and Ureters: No hydronephrosis. No solid mass. No complex renal cystic lesion which requires follow up. Nonspecific mild bilateral perinephric fat stranding is seen. No perinephric fluid. Stomach and Bowel: There is no bowel obstruction. No gross gastric or small bowel wall thickening. Mild fecal stasis in the colon is seen. Appendix is visualized and is within normal limits. Extensive sigmoid diverticulosis. Questionable wall thickening involving proximal sigmoid colon in left lower quadrant. No abscess collection. No extra luminal air is seen. Peritoneum: No abnormal intraperitoneal fluid. No free air. Ventral Wall: No significant ventral hernia. Abdominal Nodes: No retroperitoneal or mesenteric adenopathy by size criteria. Vessels: Aorta and inferior vena cava are normal in size. Moderate atherosclerotic disease in abdominal aorta and bilateral iliac arteries are seen. 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 Bladder: Mild diffuse bladder wall thickening, no discrete bladder wall mass. Pelvic Nodes: No enlarged lymph nodes. Miscellaneous: No inguinal hernias are seen. Bones: No aggressive osseous abnormality. No acute vertebral body compression fracture. Degenerative disc disease throughout lower thoracic and lumbar spine is seen. Postfusion changes are noted at L4-5 level. IMPRESSION: 1. Questionable wall thickening involving proximal sigmoid colon in left lower quadrant which may indicate sequelae from prior episodes of diverticulitis. Superimposed acute diverticulitis cannot be entirely excluded. No abscess collection. No free fluid or free air. 2. No bowel obstruction. No other area of abnormal bowel wall thickening. Small hiatal hernia. Normal appendix. 3. 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 Mild diffuse bladder wall thickening suggestive of chronic outlet obstruction. No discrete bladder wall mass or calcified bladder stones. 4. No obstructing renal stones or hydronephrosis. Nonspecific mild bilateral perinephric fat stranding, low-grade pyelonephritis cannot be excluded. Clinical correlation is recommended. Dictated by: Toney Staley M.D. on 03/26/2024 at 13:37 Approved by: Toney Staley M.D. on 03/26/2024 at 13:43 [facility] Narrative Medical decision making narrative: Patient here for painless bright red blood rectal bleeding since last night. It only occurs when he has flatus. He is on iron supplement. No dizziness. No nausea or vomiting. No hematuria. Patient is not on any blood thinners. Last colonoscopy 10 years ago. Denies any history of colon cancer or diverticulosis. Denies any abdominal pain After history and exam CBC CMP PT INR PTT CT abdomen pelvis normal saline [facility] Medical records reviewed: No recent visit for this complaint Differential considered: Includes but not limited to diverticulosis neoplasm hemorrhoid colitis Lab Test results independently reviewed as above. Pertinent findings: WBC 7.8 hemoglobin 11.3 hematocrit 34 sodium 138 potassium 5.0 BUN 56 creatinine 1.97 GFR 33 INR 1.0, laboratory studies appear to be at patient's baseline. Independently reviewed EKG sinus bradycardia rate 48 Imaging studies independently reviewed: CT abdomen pelvis extensive sigmoid diverticulosis Consultations: Treatments: Normal saline Re-evaluations: 2:15 p.m.. Patient doing well. at bedside. Reviewed results with patient and . Likely source of bleeding is diverticulosis. Patient remains painless. No antibiotics at this time. Likely not diverticulitis. Dietary changes reviewed with them as well. He does eat a lot of nuts and I reviewed with him he may want to discontinue eating those as it may trigger diverticulitis. Has not had any bloody stools here. Return precautions reviewed. He desires discharge home Discussion: Appropriate for discharge home exam is reassuring. Return precautions with the patient and . Hemodynamically stable. Referral for General surgery for outpatient colonoscopy appropriate. Return precautions reviewed and they desire discharge home. Clinically not diverticulitis. There is no abdominal pain. Abdomen is nontender. No antibiotics indicated at this time. Diagnosis: Diverticular bleed Discharge Plan Departure Patient Disposition: Home Clinical Impression: Lower gastrointestinal hemorrhage, Diverticulosis of colon with hemorrhage Instructions: Gastrointestinal Bleeding, DI for Diverticulosis Activity Restrictions/Additional Instructions: Your exam and laboratory studies are reassuring. Your rectal bleeding is likely due to diverticulosis of the colon. This should improve. However return immediately if worse if any questions concerns if any dizziness or trouble breathing. You will need to see your family doctor to scheduled for colonoscopy. You may call provided general surgeon to make appointment as well. Prescriptions: No Action ATENOLOL (Tenormin) PO Q DAY Qty: 0 Atorvastatin Calcium (Lipitor) 0 PO Q DAY Qty: 0 [THYROID Medication] 0 mg PO Q DAY Qty: 0 tamsulosin [Flomax] 0.4 MG capsule,extended release 24hr 0.4 mg PO QDAY Qty: 0 finasteride 5 MG tablet 5 mg PO QDAY Qty: 0 valacyclovir [Valtrex] 1,000 MG tablet 1,000 mg PO TID Qty: 21 0RF Referrals: Nicholas Monroy MD [Physician] - Ashley Mayo MD [Primary Care Provider] - Stand Alone Forms: Patient Portal/API/Survey
--- NOTE | 2024-03-26 12:19 | DI.CT.S_ITS ---
PROCEDURE: CT ABDOMEN PELVIS W CON INDICATIONS: rectal bleeding TECHNIQUE: After the administration of intravenous contrast, axial sections acquired from the lung bases to the pubic symphysis. Coronal and sagittal reformats were performed. For radiation dose reduction, the following was used: automated exposure control, adjustment of mA and/or kV according to patient size. COMPARISON: None. FINDINGS: Image quality: Diagnostic. Lower Chest: Dependent atelectasis in posterior aspect of bilateral lung bases are seen. Heart size is normal, no pericardial effusion. Small hiatal hernia. ABDOMEN: Liver: No solid mass. Gallbladder: No radiopaque gallstones or wall thickening. Biliary ducts: No biliary dilation. Pancreas: No ductal dilation. Spleen: Size is within normal limits. Adrenal Glands: No adrenal nodules. Kidneys and Ureters: No hydronephrosis. No solid mass. No complex renal cystic lesion which requires follow up. Nonspecific mild bilateral perinephric fat stranding is seen. No perinephric fluid. Stomach and Bowel: There is no bowel obstruction. No gross gastric or small bowel wall thickening. Mild fecal stasis in the colon is seen. Appendix is visualized and is within normal limits. Extensive sigmoid diverticulosis. Questionable wall thickening involving proximal sigmoid colon in left lower quadrant. No abscess collection. No extra luminal air is seen. Peritoneum: No abnormal intraperitoneal fluid. No free air. Ventral Wall: No significant ventral hernia. Abdominal Nodes: No retroperitoneal or mesenteric adenopathy by size criteria. Vessels: Aorta and inferior vena cava are normal in size. Moderate atherosclerotic disease in abdominal aorta and bilateral iliac arteries are seen. 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 Bladder: Mild diffuse bladder wall thickening, no discrete bladder wall mass. Pelvic Nodes: No enlarged lymph nodes. Miscellaneous: No inguinal hernias are seen. Bones: No aggressive osseous abnormality. No acute vertebral body compression fracture. Degenerative disc disease throughout lower thoracic and lumbar spine is seen. Postfusion changes are noted at L4-5 level. IMPRESSION: 1. Questionable wall thickening involving proximal sigmoid colon in left lower quadrant which may indicate sequelae from prior episodes of diverticulitis. Superimposed acute diverticulitis cannot be entirely excluded. No abscess collection. No free fluid or free air. 2. No bowel obstruction. No other area of abnormal bowel wall thickening. Small hiatal hernia. Normal appendix. 3. 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 Mild diffuse bladder wall thickening suggestive of chronic outlet obstruction. No discrete bladder wall mass or calcified bladder stones. 4. No obstructing renal stones or hydronephrosis. Nonspecific mild bilateral perinephric fat stranding, low-grade pyelonephritis cannot be excluded. Clinical correlation is recommended. Dictated by: Toney Staley M.D. on 03/26/2024 at 13:37 Approved by: Toney Staley M.D. on 03/26/2024 at 13:43
[2024-03-26] MEDS: SODIUM CHLORIDE 0.9% 500 ML 1000 ML IV (12:42)
--- NOTE | 2024-03-26 14:18 | PC.NURSE ---
Pt reports low HR is normal for him.
== END 2024-03-26 14:30 | disposition home or self-care (01) ==
PROVIDERS: Emergency Provider Emergency Medicine; PCP Internal Medicine
DX: K57.31 Diverticulosis of large intestine without perforation or abscess with bleeding (principal)
CPT/HCPCS: 36415; 74177; 80053; 85025; 85610; 85730; 86850; 86900; 86901; 93005; 96361; 96374; 99284; J2470; Q9967

== ENCOUNTER → 2024-06-25 08:52 | Outpatient (CLI) | payer MEDICARE, BC, SELFPAY ==
[2024-06-25 09:40] LABS: Appearance Urine UA CLEAR; Bilirubin Urine UA NEGATIVE (NEGATIVE); Color Urine UA YELLOW; Glucose Urine UA NEGATIVE (Negative); Ketones Urine UA NEGATIVE (NEGATIVE); Leukocyte Esterase Urine UA NEGATIVE (NEGATIVE); Nitrite Urine UA NEGATIVE (Negative); Occult Blood Urine UA NEGATIVE (Negative); Protein Urine UA NEGATIVE (Negative); Specific Gravity Urine UA 1.015 (1.000-1.035); Urine Volume 10mL (spun); Urobilinogen Urine UA 0.2 E.U./dL (0.2)
[2024-06-25 09:43] LABS: Bacteria Urine None Seen; Culture Indicated Urine Cult Not Indicated; RBC Urine None Seen (0-5/HPF); Squamous Epithelial Cell Urine None Seen (0-5/HPF); WBC Urine None Seen (0-5/HPF)
[2024-06-25 09:45] LABS: Hemoglobin 11.8 g/dL (13.5-17.5); Mean Corpuscular HGB Conc 33.7 % (30-36); Mean Corpuscular Hemoglobin 31.8 PG (26-34); Mean Corpuscular Volume 94.3 fL (80-100); Platelet Count 225 X10^3/uL (150-400); Red Blood Cell Count 3.71 X10^6/uL (4.5-5.9); Red Cell Distribution Width 12.9 % (11.6-14.8); White Blood Cell Count 7.6 X10^3/uL (4.5-11.0)
[2024-06-25 09:46] LABS: Creatinine Urine Random 102.59 mg/dL; Protein (Total) Urine Random 10 mg/dL (0-12); Protein Creatinine Ratio Urine 0.09 GRAM/24H
[2024-06-25 09:51] LABS: Microalbumin Urine Random 1.9 mg/dL (0-1.6)
[2024-06-25 10:01] LABS: HEMOLYSIS < 15 (0-50); Iron 106 ug/dL (49-181)
[2024-06-25 10:07] LABS: Albumin 4.2 g/dL (3.5-5.0); BUN Creatinine Ratio 29.3 (6-22); Blood Urea Nitrogen 70 mg/dL (9-20); Calcium 9.7 mg/dL (8.4-10.2); Carbon Dioxide 20 mmol/L (22-32); Chloride 106 mmol/L (98-107); Estimated Glomerular Filt Rate 26 mL/min (>60); Glucose 117 mg/dL (70-99); HEMOLYSIS < 15 (0-50); Phosphorous 4.1 mg/dL (2.3-3.7); Potassium 5.7 mmol/L (3.4-5.1); Sodium 135 mmol/L (137-145)
[2024-06-25 10:14] LABS: Percent Iron Saturation 44 % (20-50); Total Iron Binding Capacity 241 ug/dL (261-462); Transferrin 190 mg/dL (206-381)
[2024-06-25 10:19] LABS: Vitamin D 25 Hydroxy (D3) 62.3 ng/mL (30.0-100.0)
[2024-06-25 10:38] LABS: Ferritin 130 ng/mL (18-464)
[2024-06-26 07:41] LABS: Parathyroid Hormone Int 32 pg/mL (15-65)
== END ==
LOC: LAB 08:54
PROVIDERS: PCP Internal Medicine; Referring Provider Internal Medicine Nephrology; Visit Provider Internal Medicine Nephrology
DX: I12.9 Hypertensive chronic kidney disease with stage 1 through stage 4 chronic kidney disease, or unspecified chronic kidney disease (principal); N18.32 Chronic kidney disease, stage 3b; D63.1 Anemia in chronic kidney disease
CPT/HCPCS: 36415; 80069; 81001; 82043; 82306; 82570; 82728; 83540; 83550; 83970; 84156; 85027

== ENCOUNTER → 2024-07-07 12:43 | Outpatient (CLI) | payer MEDICARE, BC, SELFPAY ==
[2024-07-07 13:41] LABS: BUN Creatinine Ratio 28.6 (6-22); Blood Urea Nitrogen 54 mg/dL (9-20); Calcium 9.7 mg/dL (8.4-10.2); Carbon Dioxide 21 mmol/L (22-32); Chloride 110 mmol/L (98-107); Estimated Glomerular Filt Rate 35 mL/min (>60); Glucose 134 mg/dL (70-99); HEMOLYSIS < 15 (0-50); Potassium 4.6 mmol/L (3.4-5.1); Sodium 140 mmol/L (137-145)
== END ==
PROVIDERS: PCP Internal Medicine; Referring Provider Internal Medicine Nephrology; Visit Provider Internal Medicine Nephrology
DX: E87.5 Hyperkalemia (principal); N17.9 Acute kidney failure, unspecified; N18.32 Chronic kidney disease, stage 3b
CPT/HCPCS: 36415; 80048